=== PATIENT | female | born 1970 | race Caucasian/White ===

== ENCOUNTER 2016-04-29 05:53 | Day surgery (SDC) | payer SELFPAY ==
[~2016-04-29] VITALS: Ht 168.9 cm; Wt 106.8 kg
[~2016-04-29 05:53] MED LIST: ALBU8.5H INH; CYCL5TAB PO; DULO60CA46 PO; GABA-338 PO; HYDR2TAB7 PO; HYDR50TA48 PO; LURA60TA2 PO; OMEP40CA52 PO; PRAZ2CAP2 PO; TRAZ-170 PO
--- OUTSIDE RECORDS SUMMARY | 2016-04-29 06:01 | XMS REPORT | Continuity of Care Document ---
Author Author [facility] Organization [facility] Address Unknown Phone Unavailable Support Name Relationship Address Phone KATHERINE BRANDT MD Caregiver [address] [place] [phone] DWAYNE BILLINGS MD Caregiver [address] [place] [address] [phone] MARLENY LINDA Next Of Kin [address] [place] [place] [address] Insurance Providers Payer Name Policy Number Subscriber Name Relationship Blue Cross Other [id number] Svitlana Horan 20 Self Advance Directives Directive Response Recorded Date/Time Ordered Resuscitation Status Full Code 08/15/13 3:11pm Problems No known problems or medical conditions. Medications Medication Dose Route Sig Days/Qty Instructions Order Date Discontinued Date Status Norethindrone Acetate 5 Mg PO Every 6 Hours 08/15/13 08/17/13 Discontinued Paroxetine Hcl 20 Mg PO DAILY 08/15/13 Active Acetaminophen 1 Tab PO NEEDED 08/15/13 08/17/13 Discontinued Social History Social History Problem Response Recorded Date/Time Smoking Status Heavy Smoker 08/16/2013 9:49am Chewing Tobacco Status No 08/16/2013 9:49am Hx Substance Use No 08/16/2013 9:49am Hx Alcohol Use No 08/16/2013 9:49am Has the pt used tobacco in the last 12 months Yes 08/16/2013 9:49am Hospital Discharge Instructions No hospital discharge instructions. Plan of Care No plan of care. Functional Status Query Response Date Recorded Physical Hygiene Self August 17, 2013 9:51am Disabilities None August 17, 2013 9:51am Devices Used None August 17, 2013 9:51am Dressing Self August 17, 2013 9:51am Ambulation Self August 17, 2013 9:51am Diet Self August 17, 2013 9:51am Mental Status Alert Oriented August 17, 2013 9:51am Disabilities None August 17, 2013 9:51am Devices Used None August 17, 2013 9:51am Physical Hygiene Self August 17, 2013 9:51am Dressing Self August 17, 2013 9:51am Ambulation Self August 17, 2013 9:51am Diet Self August 17, 2013 9:51am Allergies, Adverse Reactions, Alerts Allergen Type Severity Reaction Status Last Updated Oxycodone Adverse Reaction Unknown N/V Active 08/15/13 Immunizations Name Given Type Hx Influenza Vaccination Y DEC 2012 Historical Hx Pneumococcal Vaccination Y DEC 2012 Historical Hx Influenza Vaccination Y DEC 2012 Historical Vital Signs Acute Vital Signs Vital Response Date/Time Temperature (Fahrenheit) 99.3 deg F (96.8 - 99.1) Temperature (Calculated Celsius) 37.75691 degrees C (36.0 - 37.3) Temperature Source Temporal Pulse Rate (adult) 59 bpm (60 - 100) Respiratory Rate 14 breaths/min (10 - 20) O2 Sat by Pulse Oximetry 98 % (90 - 100) Blood Pressure 97/67 mm Hg Blood Pressure Source Automatic Cuff Height 5 ft 6 in Weight 188 lb Body Mass Index 30.0 kg/m^2 Results Test Source Date Result Interp. Ref. Range Comments Alanine Aminotransferase (ALT/SGPT) August 15, 2013 4:05pm 22 U/L N 9-52 COMMENT [facility] Albumin August 15, 2013 4:05pm 4.5 G/DL N 3.5-5.0 COMMENT [facility] Albumin/Globulin Ratio August 15, 2013 4:05pm 1.5 RATIO N 1.1-2.2 COMMENT [facility] Alkaline Phosphatase August 15, 2013 4:05pm 58 U/L N 38-126 COMMENT [facility] Anion Gap August 15, 2013 4:05pm 12 MEQ/L N 5-15 COMMENT [facility] Aspartate Amino Transf (AST/SGOT) August 15, 2013 4:05pm 21 U/L N 14-36 COMMENT [facility] BUN/Creatinine Ratio August 15, 2013 4:05pm 13 RATIO N 6-26 COMMENT [facility] Basophils # (Auto) August 15, 2013 4:05pm 0.0 T/MM3 N 0-0.2 COMMENT [facility] Basophils (%) (Auto) August 15, 2013 4:05pm 0.2 % N 0-2 COMMENT [facility] Blood Urea Nitrogen August 15, 2013 4:05pm 9.0 MG/DL N 7-17 COMMENT [facility] TO [facility] Calcium Level August 15, 2013 4:05pm 9.1 MG/DL N 8.4-10.2 COMMENT [facility] TO [facility] Calculated Osmolality August 15, 2013 4:05pm 271 MOSM/KG N 261-280 COMMENT [facility] Carbon Dioxide Level August 15, 2013 4:05pm 24 MEQ/L N 22-30 COMMENT [facility] TO [facility] Chemistry Specimen Hemolysis August 15, 2013 4:05pm < 15 0-25 0-25: No Hemolysis.26-70: Slight Hemolysis - can falsely elevate K and Urine Protein. 71-285: Moderate Hemolysis - can falsely elevate K, Troponin I, CA 19-9, PTH, CSF GLucose, and Urine Protein, and can falsely decrease Phenytoin. 286-999: Gross Hemolysis - can falsely elevate K, Troponin I, CA 19-9, PTH, CSF Glucose, and Urine Protine, and can falsely decrease Phenytoin. Recommend specimen recollection. Chloride Level August 15, 2013 4:05pm 105 MEQ/L N 98-107 COMMENT [facility] TO LAB Creatinine August 15, 2013 4:05pm 0.7 MG/DL N 0.7-1.2 COMMENT [facility] TO LAB Eosinophils # (Auto) August 15, 2013 4:05pm 0.1 T/MM3 N 0-0.5 COMMENT [facility] TO LAB Eosinophils (%) (Auto) August 15, 2013 4:05pm 2.5 % N 0-4 COMMENT [facility] TO LAB Globulin August 15, 2013 4:05pm 3.0 G/DL N 2.4-3.6 COMMENT [facility] TO LAB Glomerular Filtration Rate Calc August 15, 2013 4:05pm 92 - COMMENT [facility] TO LAB Glucose Level August 15, 2013 4:05pm 114 MG/DL H 65-110 COMMENT [facility] TO LAB Hematocrit August 16, 2013 8:48pm 35.9 % L 36-46 Hemoglobin August 16, 2013 8:48pm 11.5 GM/DL L 12-16 Icterus Index August 15, 2013 4:05pm < 2 0-7 COMMENT [facility] TO LAB Immature Granulocyte # (Auto) August 15, 2013 4:05pm 0.01 T/MM3 N 0.00- 0.03 COMMENT [facility] TO [facility] Immature Granulocyte % (Auto) August 15, 2013 4:05pm 0.2 % N 0.0-0.5 COMMENT [facility] TO LAB Lymphocytes # (Auto) August 15, 2013 4:05pm 1.5 T/MM3 N 1-4.8 COMMENT [facility] TO LAB Lymphocytes (%) (Auto) August 15, 2013 4:05pm 28.5 % N 23-45 COMMENT [facility] TO LAB Mean Corpuscular Hemoglobin August 16, 2013 8:48pm 25.2 UUG L 26-34 Mean Corpuscular Hemoglobin Concent August 16, 2013 8:48pm 32.0 GM/DL N 31 -37 Mean Corpuscular Volume August 16, 2013 8:48pm 78.6 UM3 L 80-100 Mean Platelet Volume August 16, 2013 8:48pm 11.2 UM3 N 9.4-12.4 Monocytes # (Auto) August 15, 2013 4:05pm 0.3 T/MM3 N 0-0.8 COMMENT [facility] TO LAB Monocytes (%) (Auto) August 15, 2013 4:05pm 6.6 % N 0-9.0 COMMENT [facility] TO LAB Neutrophils # (Auto) August 15, 2013 4:05pm 3.2 T/MM3 N 1.8-7.7 COMMENT [facility] TO LAB Neutrophils (%) (Auto) August 15, 2013 4:05pm 62.0 % N 33-66 COMMENT [facility] TO LAB Platelet Count August 16, 2013 8:48pm 234 T/MM3 N 130-400 Potassium Level August 15, 2013 4:05pm 3.7 MEQ/L N 3.6-5 COMMENT [facility] TO LAB RDW Standard Deviation August 16, 2013 8:48pm 41.7 FL N 36.9-50.2 Red Blood Count August 16, 2013 8:48pm 4.57 M/MM3 N 4.00-5.20 Sodium Level August 15, 2013 4:05pm 141 MEQ/L N 134-144 COMMENT [facility] TO LAB Total Bilirubin August 15, 2013 4:05pm 1.00 MG/DL N 0.20-1.30 COMMENT [facility] TO LAB Total Protein August 15, 2013 4:05pm 7.5 G/DL N 6.3-8.2 COMMENT [facility] TO LAB Turbidity August 15, 2013 4:05pm < 20 0-20 COMMENT [facility] TO LAB White Blood Count August 16, 2013 8:48pm 9.1 T/MM3 DN 4.5-11.0 Procedures Procedure Status Date Provider(s) Robot-assisted hysterectomy completed 08/16/13 KATHERINE BRANDT MD
--- OUTSIDE RECORDS SUMMARY | 2016-04-29 06:01 | XMS REPORT ---
Author Author Octaviano Rangel [facility] Address [address] [phone] Care Team Providers Care Lime Spreader Name Role Phone ClaireRonenw Unavailable [phone] PROBLEMS Type Condition ICD9-CM Code MFH25-AA Code Onset Dates Condition Status SNOMED Code Problem Hepatic steatosis K76.0 Active 404338794 Assessment Abnormal liver enzymes R74.8 Jan, Active 757691604 Assessment Hepatomegaly R16.0 Jan, Active 34841804 ALLERGIES Substance Reaction Event Type Date Status Percocet nauseas and vomiting Non Drug Allergy Jan, Active SOCIAL HISTORY No smoking Hx information available PLAN OF CARE VITAL SIGNS Weight 235.4 lbs 2016-01-17 Heart Rate 76 /min 2016-01-17 Respiratory Rate 18 /min 2016-01-17 Blood pressure systolic 124 mm Hg 2016-01-17 Blood pressure diastolic 78 mm Hg 2016-01-17 MEDICATIONS Medication Instructions Dosage Frequency Start Date End Date Duration Status Cyclobenzaprine HCl 5 MG Orally Three times a day 1 tablet 8h Active ProAir HFA 108 (90 Base) MCG/ACT Inhalation every 4 hrs 2 puffs as needed 4h Active Trazodone HCl 50 MG Orally Once a day 1 tablet at bedtime as needed 24h Active HydrOXYzine HCl 50 MG Orally every 6 hrs 1 tablet as needed 6h Active Latuda 60 MG Orally Once a day 1 tablet with food 24h Active Cymbalta 60 MG Orally Once a day 1 capsule 24h Active Prazosin HCl 2 MG Orally Once a day 1 capsule at bedtime 24h Active RESULTS No Results PROCEDURES Procedure Date Ordered Related Diagnosis Body Site Office Visit, New Pt., Level 3 Jan 17, 2016 IMMUNIZATIONS No Known Immunizations
--- OUTSIDE RECORDS SUMMARY | 2016-04-29 06:02 | XMS REPORT | Continuity of Care Document ---
Author Author [facility] Organization [facility] Address Unknown Phone Unavailable Support Name Relationship Address Phone KATHERINE BRANDT MD Caregiver [address] [place], [place] [phone] DWAYNE BILLINGS MD Caregiver [address] [place] [address] [phone] MARLENY LINDA Next Of Kin [address] [facility] [place] [address] Insurance Providers Payer Name Policy Number Subscriber Name Relationship Blue Cross Other [id number] Svitlana Horan 20 Self Advance Directives Directive Response Recorded Date/Time Advanced Directives Type DPOA for Healthcare 09/12/13 10:03am Dr Cartwright Resuscitation Status Full Code 08/15/13 3:11pm Problems Medical Problems Problem Onset Date Status Abdominal pain Unknown Active N&V (nausea and vomiting) Unknown Active Diarrhea Unknown Active Dehydration Unknown Active Depression Unknown Active Tobacco dependence Unknown Active Overweight (BMI 25.0-29.9) Unknown Active Medications Medication Dose Route Sig Days/Qty Instructions Order Date Discontinued Date Status Norethindrone Acetate 5 Mg PO Every 6 Hours 08/15/13 08/17/13 Discontinued Paroxetine Hcl 20 Mg PO DAILY 08/15/13 Active Acetaminophen 1 Tab PO NEEDED 08/15/13 08/17/13 Discontinued Scopolamine 1 Patch TD Q3D 09/12/13 09/14/13 Discontinued Hydrocodone/Acetaminophen 1-2 Tab PO EVERY 5 HOURS PRN PAIN 09/14/13 Active Ibuprofen 800 Mg PO Every 8 Hours For PAIN 09/14/13 Active Social History Social History Problem Response Recorded Date/Time Smoking Status Heavy Smoker 08/16/2013 9:49am When did patient START smoking? 14YRS OLD 09/12/2013 10:03am Chewing Tobacco Status No 08/16/2013 9:49am Hx Substance Use No 08/16/2013 9:49am Hx Alcohol Use No 08/16/2013 9:49am Has the pt used tobacco in the last 12 months Yes 09/12/2013 10:03am Hospital Discharge Instructions No hospital discharge instructions. Plan of Care No plan of care. Functional Status Query Response Date Recorded Physical Hygiene Self September 14, 2013 5:28pm Disabilities None August 17, 2013 9:51am Devices Used Dentures September 14, 2013 5:28pm Dressing Self September 14, 2013 5:28pm Ambulation Self August 17, 2013 9:51am Diet Self September 14, 2013 5:28pm Mental Status Alert Oriented August 17, 2013 9:51am Disabilities None August 17, 2013 9:51am Devices Used Dentures September 14, 2013 5:28pm Physical Hygiene Self September 14, 2013 5:28pm Dressing Self September 14, 2013 5:28pm Ambulation Self August 17, 2013 9:51am Diet Self September 14, 2013 5:28pm Allergies, Adverse Reactions, Alerts Allergen Type Severity Reaction Status Last Updated Oxycodone Adverse Reaction Unknown N/V Active 08/15/13 Immunizations Name Given Type Hx Influenza Vaccination Y DEC 2012 Historical Hx Pneumococcal Vaccination Y DEC 2012 Historical Hx Influenza Vaccination Y DEC 2012 Historical Vital Signs Acute Vital Signs Vital Response Date/Time Temperature (Fahrenheit) 97.1 deg F (96.8 - 99.1) Temperature (Calculated Celsius) 36.31515 degrees C (36.0 - 37.3) Temperature Source Temporal Pulse Rate (adult) 60 bpm (60 - 100) Respiratory Rate 16 breaths/min (10 - 20) O2 Sat by Pulse Oximetry 99 % (90 - 100) Blood Pressure 99/63 mm Hg Blood Pressure Source Automatic Cuff Height 5 ft 6 in Weight 188 lb Body Mass Index 30.0 kg/m^2 Results Test Source Date Result Interp. Ref. Range Comments Alanine Aminotransferase (ALT/SGPT) September 13, 2013 4:24am 15 U/L N 9- 52 Albumin September 13, 2013 4:24am 3.1 G/DL L 3.5-5.0 Albumin/Globulin Ratio September 13, 2013 4:24am 1.1 RATIO N 1.1-2.2 Alkaline Phosphatase September 13, 2013 4:24am 53 U/L DN 38-126 Amylase Level September 12, 2013 4:40pm 70 U/L N 30-110 COMMENT brandi Anion Gap September 14, 2013 4:34am 7 MEQ/L N 5-15 Aspartate Amino Transf (AST/SGOT) September 13, 2013 4:24am 29 U/L N 14-36 BUN/Creatinine Ratio September 14, 2013 4:34am 4 RATIO L 6-26 Basophils # (Auto) September 14, 2013 4:34am 0.0 T/MM3 N 0-0.2 Basophils (%) (Auto) September 14, 2013 4:34am 0.0 % N 0-2 Blood Urea Nitrogen September 14, 2013 4:34am 3.0 MG/DL DL 7-17 Calcium Level September 14, 2013 4:34am 7.8 MG/DL DL 8.4-10.2 Calculated Osmolality September 14, 2013 4:34am 258 MOSM/KG L 261-280 Carbon Dioxide Level September 14, 2013 4:34am 26 MEQ/L N 22-30 Chloride Level September 14, 2013 4:34am 103 MEQ/L N 98-107 Creatinine September 14, 2013 4:34am 0.7 MG/DL N 0.7-1.2 Eosinophils # (Auto) September 14, 2013 4:34am 0.1 T/MM3 N 0-0.5 Eosinophils (%) (Auto) September 14, 2013 4:34am 1.7 % N 0-4 Escherichia coli 0157 Antigen September 14, 2013 3:51pm Negative - Has specimen been collected/obtained? Y Ferritin September 12, 2013 9:50am 11.1 NG/ML N 6-137 COMMENT may use blood in lab Globulin September 13, 2013 4:24am 2.7 G/DL N 2.4-3.6 Glucose Level September 14, 2013 4:34am 83 MG/DL N 65-110 Hematocrit September 14, 2013 4:34am 32.9 % L 36-46 Hemoglobin September 14, 2013 4:34am 10.5 GM/DL L 12-16 Iron Level September 12, 2013 9:50am 61 UG/DL N 37-170 COMMENT may use blood in lab Lipase September 12, 2013 4:40pm 84 U/L N 23-300 COMMENT brandi Lymphocytes # (Auto) September 14, 2013 4:34am 1.1 T/MM3 N 1-4.8 Lymphocytes (%) (Auto) September 14, 2013 4:34am 16.3 % L 23-45 Magnesium Level September 13, 2013 4:24am 1.7 MG/DL N 1.6-2.3 Mean Corpuscular Hemoglobin September 14, 2013 4:34am 25.4 UUG L 26-34 Mean Corpuscular Hemoglobin Concent September 14, 2013 4:34am 31.9 GM/DL N 31-37 Mean Corpuscular Volume September 14, 2013 4:34am 79.5 UM3 L 80-100 Mean Platelet Volume September 14, 2013 4:34am 11.6 UM3 N 9.4-12.4 Monocytes # (Auto) September 14, 2013 4:34am 0.3 T/MM3 N 0-0.8 Monocytes (%) (Auto) September 14, 2013 4:34am 5.1 % N 0-9.0 Neutrophils # (Auto) September 14, 2013 4:34am 5.1 T/MM3 N 1.8-7.7 Neutrophils (%) (Auto) September 14, 2013 4:34am 76.7 % H 33-66 Platelet Count September 14, 2013 4:34am 168 T/MM3 N 130-400 Potassium Level September 14, 2013 4:34am 3.3 MEQ/L DL 3.6-5 Prealbumin September 12, 2013 9:50am 16.3 MG/DL L 17.6-36.0 COMMENT may use blood in lab RDW Standard Deviation September 14, 2013 4:34am 40.3 FL N 36.9-50.2 Red Blood Count September 14, 2013 4:34am 4.14 M/MM3 N 4.00-5.20 Sodium Level September 14, 2013 4:34am 136 MEQ/L N 134-144 Stool Occult Blood September 14, 2013 3:51pm Negative - Has specimen been collected/obtained? Y Stool for White Cells September 14, 2013 3:51pm Negative - Has specimen been collected/obtained? Y Thyroid Stimulating Hormone (TSH) September 12, 2013 9:50am 2.73 MIU/L N 0.47-4.68 COMMENT may use blood in lab Total Bilirubin September 13, 2013 4:24am 0.70 MG/DL N 0.20-1.30 Total Protein September 13, 2013 4:24am 5.8 G/DL L 6.3-8.2 Urine Bacteria September 12, 2013 10:40pm 4+ H - Has specimen been collected/obtained? Y Urine Bilirubin September 12, 2013 10:40pm Negative - Has specimen been collected/obtained? Y Urine Blood September 12, 2013 10:40pm Negative - Has specimen been collected/obtained? Y Urine Collection Type September 12, 2013 10:40pm Cleancatch-midstream - Has specimen been collected/obtained? Y Urine Color September 12, 2013 10:40pm Jenise - Has specimen been collected/obtained? Y Urine Glucose (UA) September 12, 2013 10:40pm Negative - Has specimen been collected/obtained? Y Urine Ketones September 12, 2013 10:40pm Negative - Has specimen been collected/obtained? Y Urine Leukocyte Esterase September 12, 2013 10:40pm Negative - Has specimen been collected/obtained? Y Urine Mucus September 12, 2013 10:40pm Present - Has specimen been collected/obtained? Y Urine Nitrite September 12, 2013 10:40pm Negative - Has specimen been collected/obtained? Y Urine Protein September 12, 2013 10:40pm Negative - Has specimen been collected/obtained? Y Urine RBC September 12, 2013 10:40pm None seen /HPF - Has specimen been collected/obtained? Y Urine Specific [place] September 12, 2013 10:40pm >=1.030 H - Has specimen been collected/obtained? Y Urine Squamous Epithelial Cells September 12, 2013 10:40pm >50 - Has specimen been collected/obtained? Y Urine Turbidity September 12, 2013 10:40pm Cloudy - Has specimen been collected/obtained? Y Urine Urobilinogen September 12, 2013 10:40pm 0.2 EU/DL - Has specimen been collected/obtained? Y Urine WBC September 12, 2013 10:40pm 1-3 /HPF - Has specimen been collected/obtained? Y Urine pH September 12, 2013 10:40pm 6.0 - Has specimen been collected/ obtained? Y White Blood Count September 14, 2013 4:34am 6.6 T/MM3 N 4.5-11.0 Chemistry Specimen Hemolysis September 14, 2013 4:34am < 15 0-25 0-25: No Hemolysis.26-70: Slight [...] can falsely decrease Phenytoin. Recommend specimen recollection. Lab Scanned Report September 16, 2013 11:13am [facility] [id number] - Turbidity September 14, 2013 4:34am < 20 0-20 Glomerular Filtration Rate Calc September 14, 2013 4:34am 92 - Immature Granulocyte # (Auto) September 14, 2013 4:34am 0.01 T/MM3 N 0.00- 0.03 Immature Granulocyte % (Auto) September 14, 2013 4:34am 0.2 % N 0.0-0.5 Venous Blood Lactate September 12, 2013 4:40pm 0.6 MMOL/L N 0.6-2.2 COMMENT brandi Procalcitonin September 12, 2013 4:40pm < 0.05 NG/ML - PCT </=0.5 ng/mL - sepsis not likely;PCT >0.5 and </=2 ng/mL - sepsis possible; PCT >2 ng/mL - sepsis likely; PCT >/=10 ng/mL - systemic inflammatory response - sepsis or septic shock highly indicated. Icterus Index September 14, 2013 4:34am < 2 0-7 C. difficile Toxin B Gene (PCR) September 14, 2013 3:51pm Negative - If Toxin A is clinically indicated, treat accordingly. Name: SVITLANA HORAN Unit #: [id number] : 1970 Sex: F [facility]: [facility] DOS: Signed Report #: [id number] DIAGNOSTIC IMAGING REPORT TYPE OF EXAM: RF CHOLANGIOGRAM OPERATIVE Dictated By: LUIS CARLOS WALTERS MD INDICATION: ITS.REASON: CHOLECYSTECTOMY RF CHOLANGIOGRAM OPERATIVE: Comparison: Gallbladder ultrasound dated September 12, 2013 Findings: 2 fluoroscopic spot images are submitted from an intraoperative cholangiogram. Images demonstrate injection of contrast into the cystic duct with filling of the common duct and intrahepatic biliary tree. No discrete filling defects are identified. Contrast flows into the duodenum. Impression: Intraoperative fluoroscopy as above. Please refer to the dictated operative note for further details. . Procedures Procedure Status Date Provider(s) TLH W/T/O 250 G OR LESS completed 08/16/13 KATHERINE BRANDT MD [id number] ADDITION TO CODE FOR PRIMARY PROCEDURE) completed 08/16/13 Laparoscopic cholecystectomy completed 09/13/13 RAJENDRA MCCORMICK MD, FACS, CWS
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
[2016-04-29 06:03] VITALS: Ht 168.9 cm; Wt 106.8 kg
[2016-04-29 06:04] VITALS: BP 126/77; PULSE 92; RESP 14; TEMP 97.9; O2SAT 93
--- OUTSIDE RECORDS SUMMARY | 2016-04-29 06:04 | XMS REPORT | Continuity of Care Document ---
Author Author [facility] Organization [facility] Address Unknown Phone Unavailable Allergies Medications Problems Procedures Results Encounters ACCT No. Visit Date/Time Discharge Status Pt. Type Provider Facility Loc./Unit Complaint [id number] 01/03/2013 14:50:00 01/03/2013 23 :59:59 CLS Outpatient
[2016-04-29] MEDS ORDERED: SUCR1TAB20 PO (06:21)
[2016-04-29] MEDS ORDERED: BENZOCAINE 20% Top. Anesth. SPRAY UD ONE (06:53)
[2016-04-29] MEDS ORDERED: LIDOCAINE VISCOUS 2% Oral Soln 15ml UD ONE (06:53)
--- NOTE | 2016-04-29 06:57 | ANESPREOP ---
Anesthesia Record Date and Time DATE: 04/29/16 TIME: 06:54 Proposed Surgical Procedure EGD NPO since: mn Allergies: Coded Allergies: oxycodone (Verified Adverse Reaction, Unknown, N/V, 04/29/16) Ht/Wt/BMI Height: 5 ' 6.50 " Weight: 106.800 kg BMI: 37.4 kg/m2 Vital Signs Date Time Temp Pulse Resp B/P Pulse Ox O2 Delivery O2 Flow Rate FiO2 04/29/16 06:04 97.9 92 14 126/77 93 Room Air Medications Inpatient Medications Current Medications Medications (Trade) Dose Ordered Sig/Smith Start Time Stop Time Status Last Admin Dose Admin Lactated Ringer's (Lactated Ringers) 1,000 ml @ 50 mls/hr Q20H 04/29/16 07:00 Albuterol Sulfate (Proair HFA 90 mcg/actuation) 8.5 Gm Hfa.aer.ad, 2 PUFF INH Q4H PRN for SHORTNESS OF AIR, (Reported) Last Taken: on 04/15/16 Sucralfate (Carafate) 1 Gm Tablet, 1 G PO ACHS, ( Reported) Take 1 tablet, by mouth, 4 times a day (Before EACH meal and at BEDTIME). Last Taken: on 04/28/16 2100 Currently on Beta Adonay: No Medical/Surgical History Anesthesia PMH: Reports: *Diabetes (ELEVATED HGB A1C PT REPORTS - DID NOT FOLLOW UP W/ DR), Anesthesia Reactions (NO AIRWAY/INTUBATION PROBLEMS pt unsure) , Anxiety, Arthritis, Asthma (CHILDHOOD), Depression (and history of migraines) , Hepatitis (NON-ALCOHOLIC STEATOHEPATITIS ), Obesity, Pneumonia (2 months ago) , Reflux, Sleep Apnea (pressumptive) Smoking Status: Current every day smoker Has pt. smoked today?: No # of Packs per Day: 1 # of Years: 32 Use Chewing Tobacco?: No Second Hand Exposure: No Substance Use Type: does not use Alcohol Intake: none HX of Last Menstrual Period: HYST Past Surgical History Orthopedic Surgeries: Yes - R WRIST TENDON REPAIR 2010 Abdominal Surgeries: Yes - DX LAP X5, CHOLECYSTECTOMY Genitourinary Surgeries: No Cardiac Surgeries: No Endocrine Surgeries: No Reproductive Surgeries: Yes - HYSTERECTOMY, TUBAL Neurological Surgeries: No Ear Surgeries: No Nose Surgeries: No Throat Surgeries: Yes - TONSILLECTOMY Other Surgeries: Yes Anesthesia Adverse Reactions: FOUND none Family Hx of Anesthesia Advers: none Hx of Motion Sickness: No Physical Exam Respiratory: Decreased breath sounds L, Decreased breath sounds R, Lungs clear Cardiovascular: FOUND Regular rate, rhythm Airway Assessment Mallampati Score: II TMD: 2 Fingerbreadths Neck Extension: Fair Teeth: Upper Dentures, Chipped Teeth/Crowns (bottom teeth ), Poor Dentation Overall Assessment: No Airway Concerns ASA: 3 Plan Anesthesia Plan: TIVA, GETA Discussion Discussed risks/options/alternatives of anesthesia and questions answered. Patient consents. Nursing pain assessment noted. Attestation Statement Prior to the delivery of any anesthetic medication, I examined the patient, developed the plan, obtained the patient's consent and discussed the risk and benefits of the procedure with the patient/guardian. CARLENE HIGHTOWER CRNA Apr 29, 2016 06:57
[2016-04-29] MEDS ORDERED: LR 1,000 ML IV SCH (07:00)
[2016-04-29] MEDS ORDERED: LIDOCAINE 1% (10mg/ml) 2ml SDV INJ ONE (07:00)
[2016-04-29] MEDS ORDERED: PROPOFOL 500mg 50 ML IV ONE (07:07)
[2016-04-29 07:53] VITALS: BP 134/84; PULSE 87; RESP 22; TEMP 97; O2SAT 97
[2016-04-29 08:00] VITALS: BP 121/72; PULSE 75; RESP 20; O2SAT 90
--- NOTE | 2016-04-29 08:10 | GSPOSTPROC ---
Immediate Operative Note DATE: 04/29/16 TIME: 08:03 Postop Diagnosis: * Antral gastritis with small ulceration * Distal esophagitis with small ulcerations * History of H. pylori infection Surgical Procedure: EGD w/Biopsies Surgeon: Cory ASA: 3 RAJENDRA VALDIVIA MD Apr 29, 2016 08:08
[2016-04-29] MEDS ORDERED: OMEP40CA52 PO (08:12)
[2016-04-29 08:15] VITALS: BP 127/72; PULSE 72; RESP 20; O2SAT 94
[2016-04-29 08:30] VITALS: BP 125/59; PULSE 72; RESP 20; O2SAT 94
--- NOTE | 2016-04-29 08:57 | ANESPO ---
Post-Op Note Date 04/29/16 Time: 08:05 Status Pt Participated in Evaluation: Pt participated in person Vital Signs Date Time Temp Pulse Resp B/P Pulse Ox O2 Delivery O2 Flow Rate FiO2 04/29/16 08:30 72 20 125/59 94 Room Air 04/29/16 08:00 2.00 04/29/16 07:53 97.0 Respiratory Function: Airway patent, Regular respirations Cardiovascular Function: Regular pulse Mental Status: Alert/oriented Pain Level Intensity: 0 Hydration: Taking po fluids Complications during Recovery None apparent Follow-Up Instructions Instructions Per Surgeon CARLENE HIGHTOWER CRNA Apr 29, 2016 08:57
--- NOTE | 2016-04-29 13:44 | OPNOTEF ---
DATE OF OPERATION 04/29/2016 SURGEON David Ray MD PREOPERATIVE DIAGNOSES 1. Right upper quadrant pain. 2. History of H. pylori infection. POSTOPERATIVE DIAGNOSES 1. Antral gastritis with small ulceration. 2. Distal esophagitis with small ulcerations. 3. History of H. pylori infection - CESAR test pending. 4. Retained food debris within the stomach. PROCEDURE EGD with antral biopsy for CESAR testing, antral biopsies for histology, and distal esophageal biopsies. ANESTHESIA TIVA ASA CLASS 3 INDICATIONS The patient is a 46-year-old female patient who was referred to my clinic to consider EGD. She had been having right upper quadrant abdominal pain and did have a history of H. pylori testing that had been positive. She had taken two rounds of antibiotics. She is status post cholecystectomy. FINDINGS Endoscopy revealed a small ulceration in the antrum along with some antral gastritis. In the distal esophagus there were also a few areas of linear ulceration and minimal irritation. There was retained food material within the stomach despite the patient having been n.p.o. since 10 p.m. the evening before. The duodenum was normal. DESCRIPTION OF PROCEDURE After informed stent obtained the patient was taken to the endoscopy suite and placed in left lateral decubitus position. IV anesthesia was administered by the anesthesia team. A bite block was inserted followed by an Olympus video gastroscope. The gastroscope was advanced down to the second portion of the duodenum under direct vision. The scope was slowly withdrawn examining the circumferentially. In the antrum the areas of irritation were noted. A biopsy was taken for CESAR testing given her history of H. pylori infection. Additional biopsies of the irritated areas were taken and were sent to the lab for histology. The scope was then retroflexed to examine the cardiac and fundic portions of the stomach. These areas of the stomach were normal other than retained food debris within the body of the stomach. The scope was returned to a neutral position and as much of the liquid from the food debris was removed with the scope as possible. The scope was withdrawn into the distal esophagus and multiple biopsies of the irritated areas were taken. Overall there was minimal irritation of the distal esophagus but the area affected was approximately 5 cm long just above the GE junction. Once biopsy sites were verified to be hemostatic, the carbon dioxide insufflation was evacuated from the stomach and the scope was removed, examining the more proximal esophagus. The patient tolerated the procedure well. She was awakened and transferred to the recovery area in stable condition. RECOMMENDATIONS 1. Give the areas of ulceration, add omeprazole 40 mg daily. 2. Continue Carafate. 3. Await CESAR test and histology results to see if additional therapy is necessary. MTDD
== END 2016-04-29 08:50 | disposition home or self-care (01) ==
LOC: SCU 05:53
PROVIDERS: ATTEND Surgery
DX: K25.7 Chronic gastric ulcer without hemorrhage or perforation (principal); K29.60 Other gastritis without bleeding; K22.10 Ulcer of esophagus without bleeding; Z86.19 Personal history of other infectious and parasitic diseases; K30 Functional dyspepsia; F41.9 Anxiety disorder, unspecified; F32.9 Major depressive disorder, single episode, unspecified; F17.210 Nicotine dependence, cigarettes, uncomplicated; Z79.899 Other long term (current) drug therapy
CPT/HCPCS: 87081